=== PATIENT | female | born 1990 | race Caucasian/White ===

== ENCOUNTER 2021-06-26 23:21 | Emergency (ER) | payer MEDICAID ==
[~2021-06-26] VITALS: Ht 165.1 cm; Wt 110.0 kg
[2021-06-26 23:29] VITALS: BP 144/92
--- NOTE | 2021-06-26 23:42 | NUR ---
PT IN TENT. SWABS COLECTED GIVEN TO LALY
--- NOTE | 2021-06-27 00:50 | NUR ---
PT UPDATED ON NEGATIVE RAPID RESULT AND PENDING 3DAY NOVEL. PT GIVEN 2 EXTRA BLANKETS.
--- NOTE | 2021-06-27 01:40 | NUR ---
Patient discharged with v/s stable. Written and verbal after care instructions given and explained. Patient verbalized understanding. Ambulatory with steady gait. All questions addressed prior to discharge. Advised to follow up with PMD.
== END 2021-06-27 01:40 | disposition home or self-care (01) ==
LOC: MED 23:21
DX: J06.9 Acute upper respiratory infection, unspecified (principal); Z20.822 Contact with and (suspected) exposure to COVID-19
CPT/HCPCS: 87426; 99283; U0003